=== PATIENT | male | born 1980 | race Caucasian/White ===

== ENCOUNTER 2019-12-10 15:19 | Emergency (ER) | payer SELFPAY ==
[2019-12-10] MEDS ORDERED: LIDOCAINE 1% MPF 5 ML VIAL ONE (16:10)
[2019-12-10] MEDS ORDERED: HYDROCODONE/APAP 10/325 TAB ONE (16:10)
[2019-12-10] MEDS ORDERED: TETANUS & DIPHTHERIA TOX,ADULT 0.5 ML VIAL ONE (16:20)
--- NOTE | 2019-12-10 16:24 | RAD REPORT ---
EXAM DESCRIPTION: RAD - Hand Right 3 View - 12/10/2019 4:10 pm CLINICAL HISTORY: PAIN, electric saw injury to the right thumb COMPARISON: No comparisons FINDINGS: No fracture is identified. There is no dislocation or periosteal reaction noted. Soft tis berta wound is evident plantar surface of the right thumb. No retained foreign body. IMPRESSION: Right thumb soft tissue wound with no foreign body. No bone involvement.
--- NOTE | 2019-12-10 17:01 | EDPHYS ---
Physician Documentation [facility] Name: Tk Upton Age: 39 yrs Sex: Male : 1980 Arrival Date: 12/10/2019 Time: 15:22 Bed 9 Private MD: ED Physician Nav Espana HPI: 12/09 16:56 This 39 yrs old Male presents to ER via Ambulatory with complaints of Finger la1 Laceration. 16:56 The patient or guardian reports a laceration, irregular, 5 cm(s), ragged. The la1 complaints affect the palmar aspect of distal phalanx of right thumb and palmar aspect of proximal phalanx of right thumb. Context: The problem was sustained at work. Onset: The symptoms/episode began/occurred just prior to arrival. Modifying factors: The symptoms are alleviated by nothing, the symptoms are aggravated by movement. Associated signs and symptoms: Pertinent negatives: cyanosis distally, decreased sensation distally, numbness distally, tingling distally. Severity of symptoms: At their worst the symptoms were moderate. The patient has not experienced similar symptoms in the past. pt reports he was cutting with a table saw and cut the palmar aspect of his right thumb. Historical: - Allergies: 15:52 No Known Allergies; ls4 - Home Meds: 15:52 Adderall XR 30 mg Oral cp24 1 cap once daily [Active]; ls4 - PMHx: 15:52 None; ls4 - PSHx: 15:52 None; ls4 - Immunization history:: Last tetanus immunization: unknown. ROS: 16:58 Constitutional: Negative for fever, chills, and weight loss, Eyes: Negative for injury, la1 pain, redness, and discharge, Neck: Negative for injury, pain, and swelling, Cardiovascular: Negative for chest pain, palpitations, and edema, Respiratory: Negative for shortness of breath, cough, wheezing, and pleuritic chest pain, Abdomen/GI: Negative for abdominal pain, nausea, vomiting, diarrhea, and constipation, Back: Negative for injury and pain. 16:58 Neuro: Negative for headache, weakness, numbness, tingling, and seizure. 16:58 MS/extremity: Positive for laceration, of the palmar aspect of proximal phalanx of right thumb and palmar aspect of distal phalanx of right thumb. Exam: 16:58 Constitutional: This is a well developed, well nourished patient who is awake, alert, la1 and in no acute distress. Head/Face: Normocephalic, atraumatic. Eyes: Periorbital areas with no swelling, redness, or edema. Respiratory: No increased work of breathing 16:58 Skin: injury, laceration(s), the wound is approximately 5 cm(s), with a depth of 1 cm(s), of the palmar aspect of proximal phalanx of right thumb and palmar aspect of distal phalanx of right thumb, that can be described as no foreign body, irregular, jagged, with mild bleeding. Vital Signs: 15:49 BP 128 / 80; Pulse 78; Resp 16; Temp 98.1(O); Pulse Ox 99% on R/A; Weight 88.45 kg; ls4 Height 5 ft. 10 in. (177.80 cm); Pain 10/10; 17:10 BP 122 / 70; Pulse 70; Resp 14; Pulse Ox 98% on R/A; Pain 3/10; ls4 15:49 Body Mass Index 27.98 (88.45 kg, 177.80 cm) ls4 Laceration: 16:59 Wound Repair of 5cm ( 2.0in ) subcutaneous laceration to palmar aspect of proximal la1 phalanx of right thumb and palmar aspect of distal phalanx of right thumb. Irregularly shaped.. Skin/tissue flap noted.. Distal neuro/vascular/tendon intact. Anesthesia: Digital block administered with 3 mls of 1% lidocaine. Wound prep: Extensive cleansing with hibiclenz by il, Copious irrigation. Skin closed with 2 4-0 Prolene using simple sutures and sterile technique. Dressed with surgicel, nonstick, guaze. Patient tolerated well. MDM: 15:51 Patient medically screened. la1 17:02 Data reviewed: vital signs, nurses notes, radiologic studies, and as a result, I will la1 discharge patient. Data interpreted: Pulse oximetry: on room air is 99 %. Interpretation: normal. Counseling: I had a detailed discussion with the patient and/or guardian regarding: the historical points, exam findings, and any diagnostic results supporting the discharge/admit diagnosis, radiology results, the need for outpatient follow up, a hand specialist, to return to the emergency department if symptoms worsen or persist or if there are any questions or concerns that arise at home. Medication response: lidocaine. Response to treatment: the patient's symptoms have markedly improved after treatment. Special discussion: I discussed in detail with the patient the higher chance of wound infection based on his presenting history. ED course: wound margins too wide to approximate via primary intention, was able to tack the proximal and distal aspect of the wound with a suture on each end. Applied surgicel, nonstick, and gauze dressing, will have pt FU with hand.. 12/09 15:54 Order name: Hand Right 3 View XRAY la1 Administered Medications: 16:09 Drug: [place] 10 mg-325 mg 1 tabs Route: PO; ls4 16:09 Drug: Lidocaine (1 %) 5 mg Route: Infiltration; ls4 16:30 Drug: Tetanus-Diphtheria Toxoid Adult 0.5 ml {Restorative Aide: [employer]. Exp: ls4 10/15/2021. Lot #: [id number]. } Route: IM; Site: right deltoid; Disposition: 17:25 Co-signature as Attending Physician, Nav Espana MD I agree with the assessment and kdr plan of care. Disposition: 12/10/19 17:01 Discharged to Home. Impression: Laceration without foreign body of right thumb without damage to nail. - Condition is Stable. - Discharge Instructions: Nonsutured Laceration Care, Sutured Wound Care, Laceration Care, Adult, [id number]. - Prescriptions for Keflex 500 mg Oral Capsule - take 1 capsule by ORAL route every 8 hours for 10 days; 30 capsule. Tylenol- Codeine #3 300-30 mg Oral Tablet - take 2 tablets by ORAL route every 6 hours As needed; 20 tablet. - Medication Reconciliation Form, Thank You Letter, Antibiotic Education form. - Follow up: Gilbert Moss MD; When: 2 - 3 days; Reason: Wound Recheck, Recheck today's complaints, Re-evaluation by your physician. - Problem is new. - Symptoms have improved. Signatures: Dispatcher [employer] EDMS Nav Espana MD MD kdr Attema, Lee, SEWING MACHINE ASSEMBLER-C SEWING MACHINE ASSEMBLER-Cla1 Carmen West RN RN ls4 Corrections: (The following items were deleted from the chart) 17:19 17:01 12/10/2019 17:01 Discharged to Home. Impression: Laceration without foreign body ls4 of right thumb without damage to nail. Condition is Stable. Forms are Medication Reconciliation Form, Thank You Letter, Antibiotic Education, Prescription Opioid Use. Follow up: Gilbert Moss; When: 2 - 3 days; Reason: Wound Recheck, Recheck today's complaints, Re-evaluation by your physician. Problem is new. Symptoms have improved. la1
--- NOTE | 2019-12-10 17:01 | ER ---
Nurse's Notes [facility] Name: Tk Upton Age: 39 yrs Sex: Male : 1980 Arrival Date: 12/10/2019 Time: 15:22 Bed 9 Private MD: Diagnosis: Laceration without foreign body of right thumb without damage to nail Presentation: 12/09 15:49 Chief complaint: Patient states: laceration to right hand thumb. Coronavirus screen: ls4 The patient has NOT traveled to a country currently being monitored by the [facility] within the last 14 days. Proceed with normal triage procedures. Ebola Screen: Patient negative for fever greater than or equal to 101.5 degrees Fahrenheit, and additional compatible Ebola Virus Disease symptoms. Initial Sepsis Screen: Does the patient meet any 2 criteria? No. Patient's initial sepsis screen is negative. Does the patient have a suspected source of infection? No. Patient's initial sepsis screen is negative. Risk Assessment: Do you want to hurt yourself or someone else? Patient reports no desire to harm self or others. 15:49 Method Of Arrival: Ambulatory ls4 15:49 Acuity: [place] 3 ls4 Triage Assessment: 12/08 15:43 General: Appears in no apparent distress. Behavior is calm, cooperative. ls4 15:43 Pain: Complains of pain in palmar aspect of proximal phalanx of right thumb and palmar ls4 aspect of distal phalanx of right thumb Pain currently is 10 out of 10 on a pain scale. Neuro: No deficits noted. Musculoskeletal: Circulation, motion, and sensation intact. Capillary refill < 3 seconds, Range of motion: intact in all extremities, Swelling absent. Injury Description: Laceration sustained to palmar aspect of proximal phalanx of right thumb and palmar aspect of distal phalanx of right thumb is full thickness, jagged, 2.6 to 7.5 cm long, 7.6 to 20 cm long, a small amount of bleeding noted at this time. Historical: - Allergies: 12/09 15:52 No Known Allergies; ls4 - Home Meds: 15:52 Adderall XR 30 mg Oral cp24 1 cap once daily [Active]; ls4 - PMHx: 15:52 None; ls4 - PSHx: 15:52 None; ls4 - Immunization history:: Last tetanus immunization: unknown. Screenin:49 Abuse screen: Denies threats or abuse. Denies injuries from another. Nutritional ls4 screening: No deficits noted. Tuberculosis screening: No symptoms or risk factors identified. Fall Risk None identified. Assessment: 16:00 Reassessment: Patient appears in no apparent distress at this time. Patient and/or ls4 family updated on plan of care and expected duration. Pain level reassessed. Patient is alert, oriented x 3, equal unlabored respirations, skin warm/dry/pink. Patient states feeling better. Patient states symptoms have improved. Vital Signs: 15:49 BP 128 / 80; Pulse 78; Resp 16; Temp 98.1(O); Pulse Ox 99% on R/A; Weight 88.45 kg; ls4 Height 5 ft. 10 in. (177.80 cm); Pain 10/10; 17:10 BP 122 / 70; Pulse 70; Resp 14; Pulse Ox 98% on R/A; Pain 3/10; ls4 15:49 Body Mass Index 27.98 (88.45 kg, 177.80 cm) ls4 ED Course: 15:22 Patient arrived in ED. ag5 15:43 Carmen West, RN is Primary Nurse. ls4 15:49 Patient has correct armband on for positive identification. Bed in low position. Call ls4 light in reach. 15:49 Arm band placed on. ls4 15:49 Assist provider with laceration repair using sutures. Set up tray. Performed by Steven ls4 Mame NIEVES Dressed with Kerlix, SURGICELL. Patient did not have IV access during this emergency room visit. 15:51 Triage completed. ls4 15:51 Steven Vilchis FNP-C is [facility]. la1 15:51 Nav Espana MD is Attending Physician. la1 16:10 X-ray completed. Portable x-ray completed in exam room. Patient tolerated procedure bh well. 17:00 Gilbert Moss MD is Referral Physician. la1 Administered Medications: 16:09 Drug: [place] 10 mg-325 mg 1 tabs Route: PO; ls4 16:09 Drug: Lidocaine (1 %) 5 mg Route: Infiltration; ls4 16:30 Drug: Tetanus-Diphtheria Toxoid Adult 0.5 ml {Assisted Living Manager: [employer]. Exp: ls4 10/15/2021. Lot #: [id number]. } Route: IM; Site: right deltoid; Outcome: 17:01 Discharge ordered by . irish 17:18 Discharged to home ambulatory, with family. ls4 17:18 Condition: good 17:18 Discharge instructions given to patient, family, Instructed on discharge instructions, follow up and referral plans. medication usage, Demonstrated understanding of instructions, follow-up care, medications, Prescriptions given X 1, 2. 17:19 Patient left the ED. ls4 Signatures: Steven Vilchis, ROOFER METAL-C ROOFER METAL-Cla1 Carmen West, RN RN ls4 Micah Gruber 5 Sanna Heard
[2019-12-10 17:47] VITALS: BP 128/80; TEMP 98.1; O2SAT 99
== END 2019-12-10 17:19 | disposition home or self-care (01) ==
LOC: ER 15:19
PROC: 0JQJ0ZZ Repair Right Hand Subcutaneous Tissue and Fascia, Open Approach (ICD-10-PCS; principal; 2019-12-10)
DX: S61.011A Laceration without foreign body of right thumb without damage to nail, initial encounter (principal); W31.2XXA Contact with powered woodworking and forming machines, initial encounter; Y93.9 Activity, unspecified; Y92.89 Other specified places as the place of occurrence of the external cause; Y99.8 Other external cause status; Z23 Encounter for immunization
CPT/HCPCS: 90471; 90714; 99283

== ENCOUNTER 2023-03-05 11:02 | Day surgery (SDC) | payer SELFPAY ==
[2023-03-05] MEDS ORDERED: TETANUS & DIPHTHERIA TOX,ADULT 0.5 ML VIAL ONE (11:22)
[2023-03-05] MEDS ORDERED: HYDROCODONE/APAP 10/325 TAB ONE (11:22)
[2023-03-05] MEDS ORDERED: MORPHINE 4 MG/ML SYR ONE (12:18)
[2023-03-05] MEDS ORDERED: ONDANSETRON 4 MG (ODT) TAB ONE (12:19)
--- NOTE | 2023-03-05 12:32 | RAD REPORT ---
EXAM DESCRIPTION: ALIX CASTRO - 03/05/2023 12:25 pm CLINICAL HISTORY: Swelling;Pain;Deformity COMPARISON: No comparisons TECHNIQUE: Left hand, 3 views. FINDINGS: Comminuted fracture with posterolateral displacement of the distal fragment involving the tuft of the fifth digit distal phalanx. Overlying soft tissue irregularity and gas. . There is no dislocation or periosteal reaction noted. Joint alignment is maintained. No foreign body or other soft tissue abnormality. IMPRESSION: Open comminuted fracture at the tip of the fifth digit distal phalanx as above.
[2023-03-05] MEDS ORDERED: FENTANYL CITR 100 MCG/2 ML ONE ×2 (12:55→14:53)
--- NOTE | 2023-03-05 13:13 | EDPHYS ---
Physician Documentation [facility] Name: Tk Upton Age: 42 yrs Sex: Male : 1980 Arrival Date: 03/05/2023 Time: 11:02 Bed 3 Private MD: ED Physician Salty Ackerman HPI: 03/05 11:05 This 42 yrs old Male presents to ER via Ambulatory with complaints of Hand Injury, jh7 Laceration. 11:05 The complaints affect the left 5th digit, left 4th digit. Context: The problem was jh7 sustained at work, resulted from a penetrating injury, by sharp metal. Onset: The symptoms/episode began/occurred acutely. Associated signs and symptoms: Pertinent negatives: cyanosis distally, decreased sensation distally, fever. 11:05 42 y/o m presents for lacerations on the L 4th and 5th digits after cutting them on a jh7 wood shaper at work. He complains of significant pain, bleeding, and decreased range of motion of the fifth digit.. Historical: - Allergies: 11:07 No Known Allergies; aa5 - PMHx: 11:07 None; aa5 - PSHx: 11:07 None; aa5 - Immunization history:: Last tetanus immunization: unknown. - Social history:: Smoking status: Patient reports the use of cigarette tobacco products, Reported history of juuling and/or vaping. - : The history from the nurse's notes was reviewed and I agree with what is documented. ROS: 11:05 Constitutional: Negative for fever, chills, and weight loss, Eyes: Negative for injury, jh7 pain, redness, and discharge, Neck: Negative for injury, pain, and swelling, Cardiovascular: Negative for chest pain, palpitations, and edema, Respiratory: Negative for shortness of breath, cough, wheezing, and pleuritic chest pain, Abdomen/GI: Negative for abdominal pain, nausea, vomiting, diarrhea, and constipation, Back: Negative for injury and pain, Neuro: Negative for headache, weakness, numbness, tingling, and seizure. 11:05 MS/extremity: Positive for injury or acute deformity, decreased range of motion, deformity. 11:05 Skin: Positive for laceration(s), of the left hand. 11:05 All other systems are negative. Exam: 11:05 Head/Face: Normocephalic, atraumatic. Eyes: Pupils equal round and reactive to light, jh7 extra-ocular motions intact. Lids and lashes normal. Conjunctiva and sclera are non-icteric and not injected. Cornea within normal limits. Periorbital areas with no swelling, redness, or edema. Neck: Trachea midline, no thyromegaly or masses palpated, and no cervical lymphadenopathy. Supple, full range of motion without nuchal rigidity, or vertebral point tenderness. No Meningismus. Cardiovascular: Regular rate and rhythm with a normal S1 and S2. No gallops, murmurs, or rubs. Normal PMI, no JVD. No pulse deficits. Respiratory: Lungs have equal breath sounds bilaterally, clear to auscultation and percussion. No rales, rhonchi or wheezes noted. No increased work of breathing, no retractions or nasal flaring. Abdomen/GI: Soft, non-tender, with normal bowel sounds. No distension or tympany. No guarding or rebound. No evidence of tenderness throughout. Neuro: Awake and alert, GCS 15, oriented to person, place, time, and situation. Motor strength 5/5 in all extremities. Sensory grossly intact. Normal gait. 11:05 Constitutional: The patient appears alert, awake, in obvious pain. 11:05 Musculoskeletal/extremity: ROM: limited active range of motion due to pain, in the left 5th digit, Circulation is intact in all extremities. Pulses: are normal with no appreciated deficits, Sensation intact. Severe pain noted. 11:05 Skin: injury, avulsion(s), A moderate sized of the Dorsal aspect of the left fourth digit between the PIP and DIP, laceration(s), the wound is approximately 1 cm(s), with a depth of 1 cm(s), of the Palmar aspect of the left fifth digit distal to the DIP. The distal finger is deformed and open fracture is visualized.. Vital Signs: 11:06 BP 105 / 65; Pulse 95; Resp 24 S; Pulse Ox 100% on R/A; Weight 77.11 kg (R); Height 5 aa5 ft. 10 in. (R); 12:50 Pulse 73; Resp 17; Pulse Ox 100% ; Pain 8/10; nj1 14:17 BP 127 / 88; Pulse 85; Resp 16; Pulse Ox 98% ; Pain 2/10; nj1 11:06 Body Mass Index 24.39 (77.11 kg, 177.8 cm) aa5 12:50 Pain Scale: Adult nj1 14:17 Pain Scale: Adult nj1 MDM: 11:05 Patient medically screened. [facility] 13:10 Differential diagnosis: dislocation, open fracture. Data reviewed: vital signs, nurses [facility] notes, radiologic studies, plain films. Consideration of Admission/Observation Patient was admitted/placed on observation. Management of patient was discussed with the following: Rubble Placer: Dr. Moss, hand surgery/plastics. Spoke to Dr. Sabrina sheridan regarding patient condition. Sent images of both the laceration and the x-rays. He stated that he would see the patient and to prep the patient for OR.. I considered the following discharge prescriptions or medication management in the emergency department Medications were administered in the Emergency Department. See MAR. Counseling: I had a detailed discussion with the patient and/or guardian regarding: the historical points, exam findings, and any diagnostic results supporting the discharge/admit diagnosis, the need for further work-up and treatment in the hospital. Response to treatment: the patient's symptoms have markedly improved after treatment. 03/05 12:34 Order name: BMP [facility] 03/05 12:34 Order name: CBC with Diff; Complete Time: 13:45 [facility] 03/05 13:07 Order name: Type And Screen [facility] 03/05 13:07 Order name: PT-INR; Complete Time: 13:45 [facility] 03/05 11:13 Order name: XRAY Hand LEFT 3 View; Complete Time: 12:34 [facility] 03/05 11:13 Order name: Wound Care; Complete Time: 12:57 [facility] 03/05 13:07 Order name: NPO; Complete Time: 13:29 [facility] 03/05 13:10 Order name: EKG - Nurse/Tech; Complete Time: 13:56 [facility] EC:53 Rate is 76 beats/min. Rhythm is regular. QRS [place] is Normal. TN interval is normal at [facility] 146 msec. QRS interval is normal at 84 msec. QT interval is normal at 372 msec. No Q waves. T waves are Normal. No ST changes noted. Clinical impression: Normal ECG. Administered Medications: 11:20 Drug: Tetanus-Diphtheria Toxoid IM Adult 0.5 ml {Fish Rod Maker: [employer]. Exp: jl7 03/09/2024. Lot #: [id number]. } Route: IM; Site: right deltoid; 12:57 Follow up: Response: No adverse reaction nj1 11:20 Drug: [place] PO 10 mg-325 mg 1 tabs Route: PO; jl7 12:57 Follow up: Response: No adverse reaction nj1 12:15 Drug: Ondansetron PO 4 mg Route: PO; nj1 12:57 Follow up: Response: No adverse reaction nj1 12:15 Drug: morphine IM 4 mg Route: IM; Site: left vastus lateralis; nj1 12:57 Follow up: Response: No adverse reaction nj1 12:50 Drug: fentaNYL (PF) IVP 50 mcg Route: IVP; Site: right antecubital; nj1 13:56 Follow up: Response: No adverse reaction; Pain is decreased nj1 13:55 Drug: ceFAZolin IVPB 2 grams Route: IVPB; Infused Over: 30 mins; Site: right nj1 antecubital; 14:28 Follow up: Response: No adverse reaction; IV Status: Infusion continued upon admission; nj1 IV Intake: 50ml Disposition Summary: 03/05/23 13:12 Hospitalization Ordered Hospitalization Status: Observation [facility] Provider: Gilbert Moss [facility] Location: DAY SURGERY OTHER [facility] Condition: Fair [facility] Problem: new [facility] Symptoms: are unchanged [facility] Bed/Room Type: [place] [id number] Room Assignment: [facility] Diagnosis - Comminuted open fracture of the left fifth phalanx [facility] Forms: - Medication Reconciliation Form [facility] - SBAR form [facility] Signatures: Dispatcher [employer] EDNM Ekaterina Wynn RN RN aa5 Zia Boudreaux RN RN jl7 Nayla Dickson FNP [employer]CH[employer]IC[employer] 7 Janet Zimmer RN RN nj1 Corrections: (The following items were deleted from the chart) 13:37 11:05 Associated signs and symptoms: Pertinent negatives: cyanosis distally, decreased jh7 sensation distally, fever, jh7 13:38 13:31 The history from the nurse's notes was reviewed and I agree with what is [facility] documented. [facility] 13:38 13:31 42 y/o m presents for lacerations on the L 4th and 5th digits after cutting them jh7 on a wood shaper at work. He complains of significant pain, bleeding, and decreased range of motion of the fifth digit.. jh7
--- NOTE | 2023-03-05 13:13 | ER ---
Nurse's Notes [facility] Name: Tk Upton Age: 42 yrs Sex: Male : 1980 Arrival Date: 03/05/2023 Time: 11:02 Bed 3 Private MD: Diagnosis: Comminuted open fracture of the left fifth phalanx Presentation: 03/05 11:06 Acuity: [place] 2 aa5 11:06 Chief complaint: Patient states: "I cut my finger with a wood shaver for like cabinet aa5 doors". Laceration noted to left little finger that is jagged and deformity noted to distal left little finger. Pt uncomfortable and diaphoretic during triage. 11:06 Coronavirus screen: At this time, the client does not indicate any symptoms associated aa5 with coronavirus-19. Ebola Screen: Patient denies travel to an Ebola-affected area in the 21 days before illness onset. Initial Sepsis Screen: Does the patient meet any 2 criteria? HR > 90 bpm. Does the patient have a suspected source of infection? No. Patient's initial sepsis screen is negative. Risk Assessment: Do you want to hurt yourself or someone else? Patient reports no desire to harm self or others. Onset of symptoms was March 05, 2023. 11:06 Method Of Arrival: Ambulatory aa5 Historical: - Allergies: 11:07 No Known Allergies; aa5 - PMHx: 11:07 None; aa5 - PSHx: 11:07 None; aa5 - Immunization history:: Last tetanus immunization: unknown. - Social history:: Smoking status: Patient reports the use of cigarette tobacco products, Reported history of juuling and/or vaping. - : The history from the nurse's notes was reviewed and I agree with what is documented. Screenin:20 [facility] ED Fall Risk Assessment (Adult) History of falling in the last 3 months, nj1 including since admission No falls in past 3 months (0 pts) Confusion or Disorientation No (0 pts) Intoxicated or Sedated No (0 pts) Impaired Gait No (0 pts) Mobility Assist Device Used No (0 pt) Altered Elimination No (0 pt) Score/Fall Risk Level 0 - 2 = Low Risk Oriented to surroundings, Maintained a safe environment, Hourly rounding (assess needs \\T\\ fall precautionary measures) done. Abuse screen: Denies threats or abuse. Denies injuries from another. Nutritional screening: No deficits noted. Tuberculosis screening: No symptoms or risk factors identified. Assessment: 12:15 General: Appears in no apparent distress. uncomfortable, Behavior is calm, cooperative, nj1 appropriate for age. Pain: Complains of pain in dorsal aspect of middle phalanx of left ring finger, dorsal aspect of distal phalanx of left little finger and palmar aspect of distal phalanx of left little finger Pain currently is 8 out of 10 on a pain scale. 12:15 Neuro: Level of Consciousness is awake, alert, obeys commands, Oriented to person, nj1 place, time, situation. Cardiovascular: Patient's skin is warm and dry. Respiratory: Airway is patent Respiratory effort is even, unlabored. Derm: Wound noted Left pinky finger. 14:18 Reassessment: Patient appears in no apparent distress at this time. Patient and/or nj1 family updated on plan of care and expected duration. Pain level reassessed. Patient is alert, oriented x 3, equal unlabored respirations, skin warm/dry/pink. 14:20 Reassessment: Report given to OR nurse Maria. [facility] Vital Signs: 11:06 BP 105 / 65; Pulse 95; Resp 24 S; Pulse Ox 100% on R/A; Weight 77.11 kg (R); Height 5 aa5 ft. 10 in. (R); 12:50 Pulse 73; Resp 17; Pulse Ox 100% ; Pain 8/10; nj1 14:17 BP 127 / 88; Pulse 85; Resp 16; Pulse Ox 98% ; Pain 2/10; nj1 11:06 Body Mass Index 24.39 (77.11 kg, 177.8 cm) aa5 12:50 Pain Scale: Adult ia1 14:17 Pain Scale: Adult ia1 ED Course: 11:04 Patient arrived in ED. am2 11:04 Arm band placed on. aa5 11:05 [facility] 11:05 Salty Ackerman MD is Attending Physician. [facility] 11:06 Triage completed. aa5 11:27 Janet Zimmer, RN is Primary Nurse. [facility] 12:21 Patient has correct armband on for positive identification. Bed in low position. Call [facility] light in reach. Adult w/ patient. 12:26 XRAY Hand LEFT 3 View In Process Unspecified. EDMS 12:41 Inserted saline lock: 20 gauge in right antecubital area, using aseptic technique. nj1 12:56 Wound care: was soaked in Normal saline with betadine as ordered/instructed by Froylan Dickson nj1 NURSE REVIEWER. 13:10 Gilbert Moss MD is Hospitalizing Provider. [facility] 14:26 No provider procedures requiring assistance completed. Patient admitted, IV remains in nj1 place. Administered Medications: 11:20 Drug: Tetanus-Diphtheria Toxoid IM Adult 0.5 ml {Art Historian: [employer]. Exp: jl7 03/09/2024. Lot #: [id number]. } Route: IM; Site: right deltoid; 12:57 Follow up: Response: No adverse reaction nj1 11:20 Drug: [place] PO 10 mg-325 mg 1 tabs Route: PO; jl7 12:57 Follow up: Response: No adverse reaction nj1 12:15 Drug: Ondansetron PO 4 mg Route: PO; nj1 12:57 Follow up: Response: No adverse reaction nj1 12:15 Drug: morphine IM 4 mg Route: IM; Site: left vastus lateralis; nj1 12:57 Follow up: Response: No adverse reaction nj1 12:50 Drug: fentaNYL (PF) IVP 50 mcg Route: IVP; Site: right antecubital; nj1 13:56 Follow up: Response: No adverse reaction; Pain is decreased nj1 13:55 Drug: ceFAZolin IVPB 2 grams Route: IVPB; Infused Over: 30 mins; Site: right nj1 antecubital; 14:28 Follow up: Response: No adverse reaction; IV Status: Infusion continued upon admission; nj1 IV Intake: 50ml Medication: 14:26 Vaccine Information Statement (VIS) provided today. Questions and/or concerns nj1 addressed. VIS edition date: May 05, 2021. Intake: 14:28 IV: 50ml; Total: 50ml. nj1 Outcome: 13:12 Decision to Hospitalize by Provider. [facility] 14:27 Admitted to OR accompanied by nurse, via wheelchair, Report called to OR nurse Maria nj 14:27 Condition: stable 14:27 Instructed on the need for admit. 14:28 Patient left the ED. nj1 Signatures: Dispatcher [employer] EDRI Ekaterina Wynn, RN RN aa5 Zia Boudreaux RN RN jl7 Theodora Burleson am2 Nayla Dickson, OPHTHALMIC TECH OPHTHALMIC TECH 7 Janet Zimmer, CHERELLE RN nj1 Corrections: (The following items were deleted from the chart) 11:14 11:06 Chief complaint: Patient states: "I cut my finger with a wood shaver for like aa5 cabinet doors". Laceration noted to left little finger that is jagged and deformity noted to distal left little finger. 5 13:38 13:31 The history from the nurse's notes was reviewed and I agree with what is [facility] documented. [facility] 14:31 12:15 Pain: Complains of pain in dorsal aspect of middle phalanx of left ring finger, nj1 palmar aspect of distal phalanx of left little finger, palmar aspect of middle phalanx of left ring finger and left little fingernail Pain currently is 8 out of 10 on a pain scale. [facility] 14:31 12:15 Derm: Wound noted Left pinky finger nj1 nj1
[2023-03-05] MEDS ORDERED: CEFAZOLIN 2 GM in NA CHLORIDE 0.9% 100 ML IVPB ONE (13:15)
[2023-03-05 13:33] LABS: Absolute Lymphocytes (CBC) 1.3 K/uL (0.7-4.9); Hematocrit 40.6 % (39.6-49.0); Lymphocytes % 14.1 % (15.3-44.8); MCV 94.3 fL (80-100); MPV 7.2 fL (7.6-11.3)
[2023-03-05 13:43] LABS: Protime INR 0.95
[2023-03-05 13:50] LABS: Potassium 4.1 mEq/L (3.5-5.1)
[2023-03-05] MEDS ORDERED: NA CHLORIDE 0.9% 100 ML ONE (13:56)
[2023-03-05] MEDS ORDERED: Ringers Lactate 1,000 ML IV ONE (14:44)
[2023-03-05] MEDS ORDERED: SUCCINYLCHOLINE 20 MG/ML (10 ML) IV ONE (14:50)
[2023-03-05] MEDS ORDERED: MIDAZOLAM HCL 2 MG/2 ML INJ ONE (14:53)
[2023-03-05] MEDS ORDERED: propofoL 200 MG/20 ML VIAL IV ONE (14:53)
[2023-03-05] MEDS: FENTANYL CITR 100 MCG/2 ML ONE ×4 (15:02→18:15)
[2023-03-05 15:13] VITALS: O2SAT 100
[2023-03-05] MEDS ORDERED: MEPERIDINE HCL 25 MG/ML SYR ONE (17:45)
[2023-03-05] MEDS: HYDROMORPHONE HCL 1 MG/ML INJ ONE ×2 (17:55→18:01)
[2023-03-05] MEDS ORDERED: KETOROLAC 30 MG/ML INJ ONE (18:00)
--- NOTE | 2023-03-05 18:17 | OP ---
Surgeon: Gilbert Moss MD Preoperative Diagnoses: Open fracture of left little finger, distal phalanx, and laceration to ring finger. Postoperative Diagnoses: Open fracture of left little finger, distal phalanx, and laceration to ring finger. Procedures: Debridement of skin, subcutaneous tissue, bone, flap closure of the little finger and si mple closure of laceration of the ring and application of splint. Anesthesia: General. Description Of Procedure: After satisfactory induction of general anesthesia, left hand was prepped with Betadine scrub, Betadine paint, dry sterile drapes applied in usual manner. The arm was elevate d and exsanguinated with an Esmarch. Tourniquet was inflated to 250 mmHg. Hand placed on the roll l ock table. The laceration of the the flap was elevated and then the bone was cut with a b one cutter and rongeur and then filed. The wound was then jet lavaged, irrigated with about 1 L of d ilute Betadine solution. The ulnar based flap was then cut to fit and was advanced and closed over t he tip covering the bone proximally to replace the nail bed. The laceration of the ring f flakita was closed with a simple suture of Prolene 4-0, dressed with Xeroform, 2-inch Alessandro, the splint holding the PIP and DIP in extension and little finger. The patient tolerated the procedure well an d returned to recovery. VICKI/MIKE Voice ID: [id number] Report ID: [id number]
--- NOTE | 2023-03-05 18:25 | HP ---
Date of Admission: 03/05/2023 History Of Present Illness: 42-year-old white male, right-hand dominant, who cut his left little fin tasia and ring finger with a rotary blade today at 10:30 a.m., came to ER. No medical problem. No monica adrianna. He vapes nicotine twice a day. no allergies. Physical Examination: Vital Signs: 5 feet 9 inches, 170 pounds. Extremities: He has a laceration over the dorsum of the ring finger and he has open fracture of dist al phalanx of the left little finger with intact soft tissue. Assessment: Open fracture of the left little finger, distal phalanx. Plan: Debridement GH/MODL Voice ID: [id number]
[2023-03-05] MEDS ORDERED: HYDROCODONE/APAP 7.5/325 MG TAB ONE (18:34)
[2023-03-05 19:26] VITALS: BP 138/95; TEMP 98.4
--- NOTE | 2023-03-06 14:34 | EKG ---
Test Date: 2023-03-05 Test Time: 13:50:49 Taxicab Driver: GIO MEASUREMENT RESULTS: Intervals: Rate: 76 NC: 146 QRSD: 84 QT: 372 QTc: 418 [place]: P: 65 NC: 146 QRS: 74 T: 54 INTERPRETIVE STATEMENTS: Normal sinus rhythm Normal ECG No previous ECG available for comparison Electronically Signed On 03-06-23 14:32:31 CDT by Tello Gonzalez
[2023-03-07] MEDS ORDERED: MAGNES/ALUMIN/SIMET 30ML UCUP ONE (17:10)
[2023-03-07] MEDS ORDERED: LIDOCAINE VISCOUS 2% SOLN 15 ML UDC ONE (17:10)
== END 2023-03-05 19:03 | disposition home or self-care (01) ==
LOC: ER 11:02 → DS 15:39
PROVIDERS: ATTEND Specialist
PROC: 0HXGXZZ Transfer Left Hand Skin, External Approach (ICD-10-PCS; principal; 2023-03-05 15:00)
DX: S62.667B Nondisplaced fracture of distal phalanx of left little finger, initial encounter for open fracture (principal)
CPT/HCPCS: 36415; 80048; 85025; 85610; 86850; 86870; 86900; 86901; 88304; 88305; 88311; 90471; 90714; 93005; 96365; 96372; 96375; 99285; J0690; J1170; J2175; J2250; J2704; J3010; J7120; Q0162